=== PATIENT | male | born 2000 | race Caucasian/White ===

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

== ENCOUNTER 2022-06-13 08:50 | Emergency (ER) | payer BC, OTHER ==
[~2022-06-13] VITALS: Ht 185 cm; Wt 120.0 kg
[~2022-06-13 08:50] MED LIST changes: +AMOX-358 PO; +BENZ100C18 PO; +PARO25TA16 PO; +PRD10T PO
--- NOTE | 2022-06-13 09:35 | ED Back Pain ---
General Chief Complaint: Back Problems Stated Complaint: BACK PAIN Source of Information: Patient Exam Limitations: No Limitations History of Present Illness Date Seen by Provider: Jun 13, 2022 Time Seen by Provider: 09:15 Initial Comments Patient to the ER by private conveyance from home with chief complaint that yesterday afternoon he was doing some wrestling with friends and towards the evening started getting stiff and sore in his back. Nonradiating pain. No saddle anesthesia, loss of control of bowel or bladder, weakness or falls. No other trauma. No history of back problems. No fevers chills or dysuria. He did take some ibuprofen yesterday at 9:00 at night. Allergies and Home Medications Allergies Coded Allergies: Cephalexin Monohydrate (Verified Allergy, Mild, 04/18/12) Uncoded Allergies: possible allergy to keflex (Adverse Reaction, Mild, 04/18/12) Patient Home Medication List Home Medication List Reviewed: Yes Albuterol (Proventil 0.5% Rt) 2.5 Mg/0.5 Ml Nebu, (Reported) Entered as Reported by: HUSAM ARROYO on 11/07/10 0656 Amoxicillin/Potassium Clav (Augmentin 875-125 Tablet) 1 Each Tablet, 1 EACH PO BID Prescribed by: IVET PINEDA on 12/07/162250 Benzonatate (Tessalon Perles) 100 Mg Capsule, 1-2 TAB PO TID Prescribed by: IVET PINEDA on 12/07/162250 Paroxetine HCl (Paroxetine ER) 25 Mg Tab.er.24h, 25 MG PO HS, (Reported) Entered as Reported by: ROSALBA ORELLANA on 12/07/162144 Prednisone (Prednisone) 10 Mg Tab, 40 MG PO DAILY Prescribed by: IVET PINEDA on 12/07/162250 Review of Systems Constitutional: No chills, No diaphoresis EENTM: No ear discharge, No ear pain Respiratory: No cough, No short of breath Cardiovascular: No chest pain, No palpitations Gastrointestinal: No abdominal pain, No nausea, No vomiting All Other Systems Reviewed Negative Unless Noted: Yes Past Aveyndr-Sniozn-Llpmzi Hx Patient Social History Tobacco Use?: Yes Tobacco type used: Cigarettes Smoking Status: Current Everyday Smoker Use of E-Cig and/or Vaping dev: Yes E-Cig or Vaping type used: Nicotine Use of E-Cig and/or Vaping Alon: Current Everyday User Substance use?: Yes Substance type: Marijuana Alcohol Use?: Yes Alcohol type: Hard Liquor Alcohol Frequency: Once in a while Pt feels they are or have been: No Immunizations Up To Date Influenza Vaccine Up-to-Date: No; Not Current First/Initial COVID19 Vaccinat: 2020 Second COVID19 Vaccination Dima: 2020 Third COVID19 Vaccination Date: 2021 Seasonal Allergies Seasonal Allergies: Yes Past Medical History Surgery/Hospitalization HX: ASTHMA, ANXIETY T&A Tonsillectomy Asthma Reproductive Disorders: No Anxiety, Depression Physical Exam Vital Signs Capillary Refill : Height, Weight, BMI Height: 6'" Weight: 250lbs. oz. 113.447354ku; BMI Method:Stated General Appearance: No Apparent Distress, WD/WN HEENT: PERRL/EOMI, Pharynx Normal, Moist Mucous Membranes Neck: Full Range of Motion, Normal Inspection Cardiovascular: Regular Rate, Rhythm, No Edema, Normal Peripheral Pulses Respiratory: No Accessory Muscle Use, No Respiratory Distress Extremity: Normal Capillary Refill, Normal Inspection, Normal Range of Motion Neurologic/Psychiatric: Alert, Oriented x3, No Motor/Sensory Deficits Skin: Normal Color, Warm/Dry Progress/Results/Core Measures Results/Orders My Orders Orders - LUIS ERWIN Ua Culture If Indicated (06/13/22 09:02) Progress Progress Note : Time: 09:41 Progress Note No neurologic symptoms or red flag signs. Put him on NSAIDs and muscle relaxants with conservative counseling and exercising technique Departure Impression Primary Impression: Back strain Qualified Codes: S39.012A - Strain of muscle, fascia and tendon of lower back, initial encounter Disposition: 01 HOME, SELF-CARE Condition: Stable Departure-Patient Inst. Decision time for Depature: 09:43 Referrals: BAN MONTEMAYOR DO (PCP/Family) Primary Care Physician Patient Instructions: Back Exercises, Back Muscle Strain (DC) Add. Discharge Instructions: Review the handouts for recommendations on back strengthening exercises. Obtain and wear a back brace on the days that helps. Naproxen 500 mg twice a day on a scheduled basis for 1 to 2 weeks until the pain improves. Cyclobenzaprine 1 tablet every 8 hours as necessary for muscle spasms in your back. You may cut the tablet in half if it leaves you too drowsy. Do not mix with alcohol or operate heavy machinery or long drives while under the influence of cyclobenzaprine. Judicious applications of heat as well as topical creams such as icy hot or Biofreeze may be helpful for your back pain. You may follow with a chiropractor, get massages and limit your heavy lifting. If you are still having significant symptoms 2 to 4 weeks out then you can follow-up with your primary care doctor and/or physical therapy. [facility] physical therapy may be reached at [phone]. Promptly return to the nearest ER if you experience loss of control of bowel or bladder, weakness leaving you unable to stand or numbness in your saddle region. Otherwise your symptoms should improve over the next week or 2. All discharge instructions reviewed with patient and/or family. Voiced understanding. Scripts Naproxen (Naprosyn) 500 Mg Tablet 500 MG PO BID for 14 Days, #30 TAB 0 Refills Prov: LUIS ERWIN 06/13/22 Cyclobenzaprine HCl (Cyclobenzaprine HCl) 10 Mg Tablet 10 MG PO Q8H PRN for SPASMS, #20 TAB 0 Refills Prov: LUIS ERWIN 06/13/22 LUIS ERWIN Jun 13, 2022 09:35
[2022-06-13] MEDS ORDERED: CYCL10TA25 PO (09:47)
[2022-06-13] MEDS ORDERED: NAPR-1071 PO (09:47)
[2022-06-13] MEDS ORDERED: ORPHENADRINE 60 MG/2 ML (NORFLEX) AMP (ED ONLY) IM ONE (10:00)
[2022-06-13] MEDS ORDERED: KETOROLAC 60 MG/2 ML VIAL IM ONE (10:00)
[2022-06-13] MEDS ORDERED: KETOROLAC 60 MG/2 ML VIAL ONE (10:02)
[2022-06-13] MEDS ORDERED: ORPHENADRINE 60 MG/2 ML (NORFLEX) AMP (ED ONLY) ONE (10:03)
[2022-06-13 10:10] VITALS: BP 140/97
== END 2022-06-13 10:10 | disposition home or self-care (01) ==
LOC: EDUNIT# 08:50 → ER 08:52
DX: S39.012A Strain of muscle, fascia and tendon of lower back, initial encounter (principal); F17.210 Nicotine dependence, cigarettes, uncomplicated; F17.290 Nicotine dependence, other tobacco product, uncomplicated; X58.XXXA Exposure to other specified factors, initial encounter; Y93.72 Activity, wrestling
CPT/HCPCS: 99284

== ENCOUNTER 2023-05-02 00:57 | Emergency (ER) | payer BC ==
[~2023-05-02] VITALS: Ht 183 cm; Wt 136.0 kg
[~2023-05-02 00:57] MED LIST changes: +CYCL10TA25 PO; +NAPR-1071 PO
[2023-05-02] MEDS ORDERED: NS IV 1000 ML 1,000 ML IV STA (01:20)
--- NOTE | 2023-05-02 01:20 | ED Abdominal Pain ---
General Chief Complaint: Abdominal/GI Problems Stated Complaint: RT SIDE PX,VOMITING Nursing Triage Note: rt sided pain, started 1-2 hours ago. states vomitting. Source of Information: Patient Exam Limitations: No Limitations History of Present Illness Date Seen by Provider: May 02, 2023 Time Seen by Provider: 01:10 Initial Comments Patient is a 23-year-old male who presents to the emergency room with a chief complaint of right flank pain, right lower quadrant abdominal pain onset a couple of hours ago. He states he developed nausea and vomiting, multiple times. He has never had a pain like this before. He states laying on his left side tends to help the pain a little bit, movement and bumps in the road and the car on the way here made the pain worse. No recent fevers or chills. He was able to eat some strawberries shortcake about 3 hours ago. He states his last bowel movement was yesterday. He has no prior abdominal surgeries. He has not taken anything for the pain. Denies testicular pain or swelling. No dysuria, urgency or frequency. Currently rates his pain at a "7 or 8". Has a family history of a grandfather who has had kidney stones. Timing/Duration: 1-3 Hours Severity/Quality: Severe ("7-8") Location: RLQ, Flank (right) Modifying Factors: Improves With Lying down; Worsens With Movement Associated Symptoms: Nausea/Vomiting Allergies and Home Medications Allergies Coded Allergies: Cephalexin Monohydrate (Verified Allergy, Mild, 04/18/12) Uncoded Allergies: possible allergy to keflex (Adverse Reaction, Mild, 04/18/12) Patient Home Medication List Home Medication List Reviewed: Yes Albuterol (Proventil 0.5% Rt) 2.5 Mg/0.5 Ml [facility], (Reported) Entered as Reported by: HUSAM ARROYO on 11/07/10 0656 Amoxicillin/Potassium Clav (Augmentin 875-125 Tablet) 1 Each Tablet, 1 EACH PO BID Prescribed by: IVET PINEDA on 12/07/162250 Benzonatate (Tessalon Perles) 100 Mg Capsule, 1-2 TAB PO TID Prescribed by: IVET PINEDA on 12/07/162250 Cyclobenzaprine HCl (Cyclobenzaprine HCl) 10 Mg Tablet, 10 MG PO Q8H PRN for SPASMS Prescribed by: LUIS ERWIN on 06/13/22 0947 Hydrocodone/Acetaminophen (Hydrocodone-Acetamin 5-325 mg) 5 Mg-325 Mg Tablet, 1 TAB PO Q6H PRN for PAIN-BREAKTHROUGH Prescribed by: CULLEN PEREZ on 05/02/23 030 Naproxen (Naprosyn) 500 Mg Tablet, 500 MG PO BID Prescribed by: LUIS ERWIN on 06/13/22 0947 Ondansetron (Ondansetron Odt) 4 Mg Tab.rapdis, 4 MG SL Q8H PRN for NAUSEA/VOMITING Prescribed by: CULLEN PEREZ on 05/02/23 030 Paroxetine HCl (Paroxetine ER) 25 Mg Tab.er.24h, 25 MG PO HS, (Reported) Entered as Reported by: ROSALBA ORELLANA on 12/07/162144 Prednisone (Prednisone) 10 Mg Tab, 40 MG PO DAILY Prescribed by: IVET PINEDA on 12/07/16 225 Tamsulosin HCl (Flomax) 0.4 Mg Cap, 0.4 MG PO HS Prescribed by: CULLEN PEREZ on 05/02/23 030 Review of Systems Review of Systems Constitutional: see HPI Respiratory: Shortness of Air (due to the pain) Cardiovascular: No Symptoms Reported Gastrointestinal: Abdominal Pain, Nausea, Vomiting Genitourinary: No Symptoms Reported Musculoskeletal: no symptoms reported Skin: no symptoms reported All Other Systems Reviewed Negative Unless Noted: Yes Past Iauxerk-Wjsnzq-Dtsbpf Hx Patient Social History Tobacco Use?: Yes Tobacco type used: Cigarettes Substance use?: Yes Substance type: Marijuana Substance frequency: Daily Immunizations Up To Date First/Initial COVID19 Vaccinat: 2020 Second COVID19 Vaccination Dima: 2020 Third COVID19 Vaccination Date: 2021 Seasonal Allergies Seasonal Allergies: Yes Past Medical History Surgery/Hospitalization HX: ASTHMA, ANXIETY T&A Tonsillectomy Asthma Reproductive Disorders: No Anxiety, Depression Physical Exam Vital Signs Vital Signs - First Documented 05/02/23 05/02/23 01:08 03:50 Temp 36.9 Pulse 86 Resp 18 B/P (MAP) 137/96 Pulse Ox 98 O2 Delivery Room Air Capillary Refill : Less Than 3 Seconds Height/Weight/BMI Height: 6'" Weight: 250lbs. oz. 113.579719pt; 40.00 BMI Method:Stated General Appearance: WD/WN, mild distress HEENT: PERRL/EOMI Respiratory: lungs clear, normal breath sounds, no respiratory distress, no accessory muscle use Cardiovascular: regular rate, rhythm Gastrointestinal: normal bowel sounds, non tender, soft Back: normal inspection, no CVA tenderness Neurologic/Psychiatric: alert, normal mood/affect, oriented x 3 Skin: normal color, warm/dry Progress/Results/Core Measures Results/Orders Lab Results Laboratory Tests Test 05/02/23 01:12 05/02/23 02:30 Range/Units White Blood Count 14.6 H 4.3-11.0 10^3/uL Red Blood Count 5.47 4.30-5.52 10^6/uL Hemoglobin 15.9 13.3-17.7 g/dL Hematocrit 45 40-54 % Mean Corpuscular Volume 83 80-99 fL Mean Corpuscular Hemoglobin 29 25-34 pg Mean Corpuscular Hemoglobin Concent 35 32-36 g/dL Red Cell Distribution Width 12.2 10.0-14.5 % Platelet Count 324 130-400 10^3/uL Mean Platelet Volume 10.8 9.0-12.2 fL Immature Granulocyte % (Auto) 0 % Neutrophils (%) (Auto) 72 42-75 % Lymphocytes (%) (Auto) 20 12-44 % Monocytes (%) (Auto) 6 0-12 % Eosinophils (%) (Auto) 2 0-10 % Basophils (%) (Auto) 1 0-10 % Neutrophils # (Auto) 10.5 H 1.8-7.8 10^3/uL Lymphocytes # (Auto) 2.9 1.0-4.0 10^3/uL Monocytes # (Auto) 0.8 0.0-1.0 10^3/uL Eosinophils # (Auto) 0.2 0.0-0.3 10^3/uL Basophils # (Auto) 0.1 0.0-0.1 10^3/uL Immature Granulocyte # (Auto) 0.0 0.0-0.1 10^3/uL Sodium Level 142 135-145 MMOL/L Potassium Level 3.7 3.6-5.0 MMOL/L Chloride Level 109 H 98-107 MMOL/L Carbon Dioxide Level 20 L 21-32 MMOL/L Anion Gap 13 5-14 MMOL/L Blood Urea Nitrogen 12 7-18 MG/DL Creatinine 1.02 0.60-1.30 MG/DL Estimat Glomerular Filtration Rate 107 BUN/Creatinine Ratio 12 Glucose Level 116 H 70-105 MG/DL Calcium Level 10.0 8.5-10.1 MG/DL Urine Color BROWN H Urine Clarity TURBID Urine pH 6.0 5-9 Urine Specific Hilliard >=1.030 1.016-1.022 Urine Protein 2+ H NEGATIVE Urine Glucose (UA) NEGATIVE NEGATIVE Urine Ketones NEGATIVE NEGATIVE Urine Nitrite NEGATIVE NEGATIVE Urine Bilirubin 2+ H NEGATIVE Urine Urobilinogen 1.0 < = 1.0 MG/DL Urine Leukocyte Esterase NEGATIVE NEGATIVE Urine RBC (Auto) 3+ H NEGATIVE Urine RBC >100 H /HPF Urine WBC RARE /HPF Urine Crystals NONE /LPF Urine Amorphous Sediment FEW KERRI PHOSPHATE H /LPF Urine Bacteria NEGATIVE /HPF Urine Casts PRESENT /LPF Urine Hyaline Casts RARE /LPF Urine Mucus SMALL H /LPF Urine Culture Indicated NO My Orders Orders - CULLEN PEREZ MD Ed Iv/Invasive Line Start (05/02/23 01:20) Cbc With Automated Diff (05/02/23 01:20) Basic Metabolic Panel (05/02/23 01:20) Ua Culture If Indicated (05/02/23 01:20) Ct Abd/Pelvis Wo(Kidney Stone) (05/02/23 01:20) Abdomen/Kub 1view (05/02/23 01:20) Ns Iv 1000 Ml (Sodium Chloride 0.9%) (05/02/23 01:20) Ketorolac Injection (Toradol Injection) (05/02/23 01:30) Ondansetron Injection (Zofran Injectio (05/02/23 01:30) Ketorolac Injection (Toradol Injection) (05/02/23 01:29) Ondansetron Injection (Zofran Injectio (05/02/23 01:29) Ns Iv 1000 Ml (Sodium Chloride 0.9%) (05/02/23 01:29) Tamsulosin Capsule (Flomax Capsule) (05/02/23 18:00) Hydrocodone/Apap 5/325 Tablet (Lortab 5 (05/02/23 03:15) Rx-Hydrocodone/Apap 5-325 Mg (Rx-Vicodin (05/02/23 03:15) Tamsulosin Capsule (Flomax Capsule) (05/02/23 03:36) Medications Given in ED Current Medications Medications Dose Ordered Sig/Opal Route Start Time Stop Time Status Last Admin Dose Admin Acetaminophen/ Hydrocodone Bitart 1 ea ONCE ONCE PO 05/02/23 03:15 05/02/23 03:16 DC 05/02/23 03:48 1 EA Acetaminophen/ Hydrocodone Bitart 1 ea Q6H PRN PO 05/02/23 03:15 05/02/23 03:57 DC 05/02/23 03:50 1 EA Ketorolac Tromethamine 15 mg ONCE ONCE IVP 05/02/23 01:30 05/02/23 01:31 DC 05/02/23 01:32 15 MG Ondansetron HCl 4 mg ONCE ONCE IVP 05/02/23 01:30 05/02/23 01:31 DC 05/02/23 01:34 4 MG Vital Signs/I&O 05/02/23 05/02/23 01:08 03:50 Temp 36.9 Pulse 86 61 Resp 18 20 B/P (MAP) 137/96 Pulse Ox 98 98 O2 Delivery Room Air Room Air Progress Progress Note #1: Time: 02:56 Progress Note pain improved - rated about a "3 or 4" currently Progress Note #2: Time: 03:30 Progress Note Patient seen and evaluated by me. Evaluation today includes physical exam, CBC, basic metabolic panel, urinalysis, KUB and CT scan renal stone protocol. Pertinent physical exam findings well-developed well-nourished obese male in no acute distress. Abdomen is soft with minimal tenderness in the right flank. Bowel sounds are present. No involuntary guarding or rebound. No CVA tenderness. Vital signs are stable. Differential diagnosis based on history and physical exam, renal colic/right- sided kidney stone, acute appendicitis. Labs, KUB and CT scan independently reviewed and interpreted by me. His CBC shows a total white blood cell count of 14.6 otherwise normal. Chemistry shows a slightly decreased CO2 at 20. Chloride of 109. Urinalysis shows greater than 100 red blood cells without nitrites, white blood cells or leukocyte esterase. KUB shows a small area of calcification at approximately the level of L1 on the right consistent with possible kidney stone. CT scan reviewed by me shows a small 2 to 3 mm stone proximal right ureter. Patient was treated in the emergency department with 1 L of normal saline, 15 mg of Toradol IV, 4 of Zofran IV. He achieved significant improvement in his symptoms down to a "3 or 4". He was then given Flomax and hydrocodone for home. Patient was instructed to strain his urine until he passed his stone. He has no findings concerning for urinary tract infection associated with his kidney stone. Shared decision making with the patient and his mother who is at the bedside. Patient is comfortable with discharge to home. Pain is well controlled. Return precautions are provided in both verbal and written format. All questions were sought and answered. Patient is improved at discharge Diagnostic Imaging Diagonstic Imaging: Xray Comments independent interpretation by me - Right sided renal stone about the level L1 Diagonstic Imaging: CT Comments 025 CT renal stone protocol independent interpretation by me 3mm stone prox right ureter Departure Impression Primary Impression: Kidney stone on right side Disposition: 01 HOME, SELF-CARE Condition: Improved Departure-Patient Inst. Decision time for Depature: 03:43 Referrals: BAN MONTEMAYOR DO (PCP/Family) Primary Care Physician Patient Instructions: Kidney Stone, Adult ED Add. Discharge Instructions: Drink plenty of fluids to stay well hydrated. Use the Ondansetron 4mg every 8 hours for nausea. Hydrocodone 5mg tablets every 6 hours as needed for pain. This medication can make you constipated. You should take a daily stool softener if you are having to take it often. Ibuprofen 3 tablets (600mg) every 6 hours with food also, as needed for pain. Flomax 0.4mg daily at bedtime to increase urinary flow (until you pass the stone). Strain your urine until you pass your kidney stone. If you develop a fever, worsening pain, vomiting where you cant hold down medication, please return to the Emergency Department for re-evaluation. Please follow up with your primary care doctor. Scripts Ondansetron (Ondansetron Odt) 4 Mg Tab.rapdis 4 MG SL Q8H PRN for NAUSEA/VOMITING, #12 TAB Prov: CULLEN PEREZ MD 05/02/23 Hydrocodone/Acetaminophen (Hydrocodone-Acetamin 5-325 mg) 5 Mg-325 Mg Tablet 1 TAB PO Q6H PRN for PAIN-BREAKTHROUGH, #12 TAB Prov: CULLEN PEREZ MD 05/02/23 Tamsulosin HCl (Flomax) 0.4 Mg Cap 0.4 MG PO HS for 14 Days, #14 CAP Prov: CULLEN PEREZ MD 05/02/23 Copy Copies To 1: BAN MONTEMAYOR KATHRYN M MD May 02, 2023 01:20
[2023-05-02] MEDS ORDERED: NS IV 1000 ML 1,000 ML ONE (01:29)
[2023-05-02] MEDS ORDERED: ONDANSETRON 4 MG/2 ML (SDV) Z0FRAN ONE (01:29)
[2023-05-02] MEDS ORDERED: KETOROLAC 15 MG/ML VIAL ONE (01:29)
[2023-05-02] MEDS ORDERED: KETOROLAC 15 MG/ML VIAL IVP ONE (01:30)
[2023-05-02] MEDS ORDERED: ONDANSETRON 4 MG/2 ML (SDV) Z0FRAN IVP ONE (01:30)
[2023-05-02 01:43] LABS: BASOPHILS # (AUTO) 0.1 10^3/uL (0.0-0.1); BASOPHILS % (AUTO) 1 % (0-10); EOSINOPHILS # (AUTO) 0.2 10^3/uL (0.0-0.3); EOSINOPHILS % (AUTO) 2 % (0-10); HEMATOCRIT 45 % (40-54); HEMOGLOBIN 15.9 g/dL (13.3-17.7); LYMPHOCYTES # (AUTO) 2.9 10^3/uL (1.0-4.0); LYMPHOCYTES % (AUTO) 20 % (12-44); MEAN CORPUSCULAR HEMOGLOBIN 29 pg (25-34); MEAN CORPUSCULAR HGB CONC 35 g/dL (32-36); MEAN CORPUSCULAR VOLUME 83 fL (80-99); MEAN PLATELET VOLUME 10.8 fL (9.0-12.2); MONOCYTES # (AUTO) 0.8 10^3/uL (0.0-1.0); MONOCYTES % (AUTO) 6 % (0-12); NEUTROPHILS # (AUTO) 10.5 10^3/uL (1.8-7.8); NEUTROPHILS % (AUTO) 72 % (42-75); PLATELET COUNT 324 10^3/uL (130-400); WHITE BLOOD COUNT 14.6 10^3/uL (4.3-11.0)
[2023-05-02 01:48] LABS: POTASSIUM 3.7 MMOL/L (3.6-5.0)
[2023-05-02 01:53] LABS: CREATININE SERUM 1.02 MG/DL (0.60-1.30)
[2023-05-02 02:51] LABS: CLARITY,URINE TURBID; COLOR,URINE BROWN; GLUCOSE, URINE (UA) NEGATIVE (NEGATIVE); KETONES,URINE NEGATIVE (NEGATIVE); LEUKOCYTE ESTERASE ,URINE NEGATIVE (NEGATIVE); NITRITE,URINE NEGATIVE (NEGATIVE); PROTEIN,URINE 2+ (NEGATIVE)
[2023-05-02] MEDS ORDERED: TMSL.4C PO (03:02)
[2023-05-02] MEDS ORDERED: ACHD5005 PO (03:02)
[2023-05-02] MEDS ORDERED: ONDA4TAB11 SL (03:02)
[2023-05-02 03:12] LABS: BACTERIA,URINE NEGATIVE /HPF; RBC,URINE >100 /HPF; WBC,URINE RARE /HPF
[2023-05-02] MEDS ORDERED: HYDROcodone/APAP 5 MG/325 MG (LORTAB) TAB PO ONE (03:15)
[2023-05-02 03:16] LABS: HYALINE CASTS, URINE RARE /LPF
[2023-05-02 03:17] LABS: AMORPHOUS SEDIMENT,UR FEW AMOR PHOSPHATE /LPF; BILIRUBIN,URINE 2+ (NEGATIVE)
[2023-05-02] MEDS ORDERED: TAMSULOSIN 0.4 MG (FLOMAX) CAP PO ONE (03:36)
[2023-05-02 03:50] VITALS: BP 137/96
--- NOTE | 2023-05-02 06:44 | Diagnostic Imaging Report ---
Vomiting with right flank pain. Correlated with a CT performed earlier. The minute calculi appreciable at CT are not apparent at radiograph owing to modality limitations. No bowel obstruction. IMPRESSION: No abnormality appreciable. Known stones are imperceptible at this exam. Dictated by: Dictated on workstation # [id number]
--- NOTE | 2023-05-02 06:46 | Diagnostic Imaging Report ---
PROCEDURE: CT urinary tract, rule out kidney stone. TECHNIQUE: Multiple contiguous axial images were obtained through the abdomen and pelvis without the use of intravenous contrast. Auto Exposure Controls were utilized during the CT exam to meet ALARA standards for radiation dose reduction. INDICATION: Right flank pain with vomiting. Noncontrasted abdominal pelvic CT performed with multiplanar reconstructions FINDINGS: There is a punctate 2 mm calculus at the level of the right ureteropelvic junction resulting in mild proximal hydronephrosis. There are additional 1 to 2 mm punctate stones within right upper pole calyces. The contralateral left kidney is unobstructed and contains at least 2 faint 1 mm calculi. The appendix well-visualized and normal. There is no diverticulitis. There is no ileus or bowel obstruction. The urinary bladder unremarkable. The remaining unopacified abdominal pelvic solid viscus unremarkable. IMPRESSION: Mild bilateral nephrolithiasis, mild right hydronephrosis secondary to a 2 mm stone at the right UPJ. Agree with preliminary Dictated by: Dictated on workstation # [id number]
[2023-05-02] MEDS ORDERED: TAMSULOSIN 0.4 MG (FLOMAX) CAP PO SCH (18:00)
== END 2023-05-02 03:57 | disposition home or self-care (01) ==
LOC: EDUNIT# 00:57 → ER 01:01
DX: N13.2 Hydronephrosis with renal and ureteral calculous obstruction (principal); F17.210 Nicotine dependence, cigarettes, uncomplicated
CPT/HCPCS: 36415; 74018; 74176; 80048; 81000; 85025

== ENCOUNTER 2023-05-07 13:24 | Emergency (ER) | payer BC ==
[~2023-05-07] VITALS: Ht 182.8 cm; Wt 127.2 kg
[~2023-05-07 13:24] MED LIST changes: +ACHD5005 PO; +ONDA4TAB11 SL; +TMSL.4C PO
[2023-05-07 13:27] VITALS: BP 138/89
[2023-05-07] MEDS ORDERED: ONDANSETRON 4 MG (ZOFRAN) ORAL DISSOLVE TAB PO ONE (14:00)
--- NOTE | 2023-05-07 14:04 | ED Cough/URI ---
General Chief Complaint: Respiratory Problems Stated Complaint: SOA, VOMITING Nursing Triage Note: Patient c/o cough and shortness of breath x 3 days ago. Patient states he seen his PCP for this 2 days ago and was started on an antibiotic. Patient c/o N/V that started today, but denies any diarrhea. Patient states he has vomited x 2 today. Patient c/o epigastric pain with rating his pain 2/10. Patient states he started to do a breathing Tx. before coming to the ER, but states he only end up doing half the Tx. Patient able to talk in full sentences without having to stop and catch his breath. No active vomiting upon coming into ER. Source: patient Exam Limitations: no limitations (YANNA GUTIERREZ APRN) History of Present Illness Date Seen by Provider: May 07, 2023 Time Seen by Provider: 13:53 Initial Comments This is a 23-year-old male with a history of asthma who presented to the ER for complaints of cough and shortness of breath for the past 3 days. States that he was recently evaluated in the ER and diagnosed with a right kidney stone, when he followed up with his primary care provider he was given Augmentin for potential infection. States that he attempted to do a breathing treatment prior to arrival but he felt more short of breath so he decided to come to the ER to be further evaluated. He does have ondansetron at home for nausea but has not taken anything this morning. No fever, chills, chest pain, abdominal pain, nausea, vomiting, diarrhea. (YANNA GUTIERREZ TREE TRIMMER) Allergies and Home Medications Allergies Coded Allergies: Cephalexin Monohydrate (Verified Allergy, Mild, 04/18/12) Uncoded Allergies: possible allergy to keflex (Adverse Reaction, Mild, 04/18/12) Patient Home Medication List Home Medication List Reviewed: Yes (YANNA GUTIERREZ APRN) Albuterol (Proventil 0.5% Rt) 2.5 Mg/0.5 Ml Nebu, (Reported) Entered as Reported by: HUSAM ARROYO on 11/07/10 0656 Amoxicillin/Potassium Clav (Augmentin 875-125 Tablet) 1 Each Tablet, 1 EACH PO BID Prescribed by: IVET PINEDA on 12/07/16 2251 Benzonatate (Tessalon Perles) 100 Mg Capsule, 1-2 TAB PO TID Prescribed by: IVET PINEDA on 12/07/162250 Cyclobenzaprine HCl (Cyclobenzaprine HCl) 10 Mg Tablet, 10 MG PO Q8H PRN for SPASMS Prescribed by: LUIS ERWIN on 06/13/22 0947 Hydrocodone/Acetaminophen (Hydrocodone-Acetamin 5-325 mg) 5 Mg-325 Mg Tablet, 1 TAB PO Q6H PRN for PAIN-BREAKTHROUGH Prescribed by: CULLEN PEREZ on 05/02/23 030 Naproxen (Naprosyn) 500 Mg Tablet, 500 MG PO BID Prescribed by: LUIS ERWIN on 06/13/22 0947 Ondansetron (Ondansetron Odt) 4 Mg Tab.rapdis, 4 MG SL Q8H PRN for NAUSEA/VOMITING Prescribed by: CULLEN PEREZ on 05/02/23 030 Paroxetine HCl (Paroxetine ER) 25 Mg Tab.er.24h, 25 MG PO HS, (Reported) Entered as Reported by: ROSALBA ORELLANA on 12/07/162144 Prednisone (Prednisone) 10 Mg Tab, 40 MG PO DAILY Prescribed by: IVET PINEDA on 12/07/162250 Tamsulosin HCl (Flomax) 0.4 Mg Cap, 0.4 MG PO HS Prescribed by: CULLEN PEREZ on 05/02/23301 Review of Systems Review of Systems Constitutional: see HPI (YANNA GUTIERREZ TREE TRIMMER) Past Zrbygbc-Nbtorx-Qfeijj Hx Patient Social History Tobacco Use?: No Tobacco type used: Cigarettes Smoking Status: Former Smoker Use of E-Cig and/or Vaping dev: Yes E-Cig or Vaping type used: Nicotine Use of E-Cig and/or Vaping Alon: Current Everyday User Substance use?: Yes Substance type: Marijuana Substance frequency: Once in a while Alcohol Use?: No (YANNA GUTIERREZ TREE TRIMMER) Immunizations Up To Date Influenza Vaccine Up-to-Date: No; Not Current First/Initial COVID19 Vaccinat: 2020 Second COVID19 Vaccination Dima: 2020 Third COVID19 Vaccination Date: 2021 (YANNA GUTIERREZ TREE TRIMMER) Seasonal Allergies Seasonal Allergies: Yes (YANNA GUTIERREZ APRN) Past Medical History Surgery/Hospitalization HX: Asthma Tonsillectomy Asthma Reproductive Disorders: No Anxiety, Depression (YANNA GUTIERREZ APRN) Physical Exam Vital Signs - First Documented 05/07/23 13:27 Temp 37.1 Pulse 86 Resp 14 B/P (MAP) 138/89 (105) Pulse Ox 99 O2 Delivery Room Air (SUSANA RAZO MD) Capillary Refill : (YANNA GUTIERREZ APRN) Height: 6'" Weight: 250lbs. oz. 113.930164sb; 38.00 BMI Method:Stated General Appearance: WD/WN, no apparent distress Eyes: Bilateral Eye Normal Inspection, Bilateral Eye PERRL, Bilateral Eye EOMI HEENT: PERRL/EOMI, normal ENT inspection, pharynx normal Neck: full range of motion, supple, normal inspection Respiratory: lungs clear, normal breath sounds, no respiratory distress, no accessory muscle use Cardiovascular: regular rate, rhythm, no murmur Extremities: normal range of motion, normal inspection Neurologic/Psychiatric: no motor/sensory deficits, alert, normal mood/affect, oriented x 3 Skin: normal color, warm/dry (YANNA GUTIERREZ APRN) Progress/Results/Core Measures Suspected Sepsis SIRS Temperature: Pulse: 86 Respiratory Rate: 14 Blood Pressure 138 /89 Mean: 105 (YANNA GUTIERREZ APRN) Results/Orders Medications Given in ED Current Medications Medications Dose Ordered Sig/Opal Route Start Time Stop Time Status Last Admin Dose Admin Ondansetron HCl 4 mg ONCE ONCE PO 05/07/23 14:00 05/07/23 14:01 DC 05/07/23 14:23 4 MG (SUSANA RAZO MD) Vital Signs/I&O 05/07/23 13:27 Temp 37.1 Pulse 86 Resp 14 B/P (MAP) 138/89 (105) Pulse Ox 99 O2 Delivery Room Air (SUSANA RAZO MD) Vital Signs/I&O Capillary Refill : (YANNA GUTIERREZ APRN) Blood Pressure Mean: 105 Progress Note : Progress Note Patient examined in no acute distress. His vital signs are stable, no accessory muscle use no increased effort. His exam is unremarkable. We will go ahead and obtain chest x-ray and give Zofran now. Had questions inquiring about his kidney stone, reviewed his CAT scan with him and given copy in the emergency department. All questions and concerns voiced were addressed. Notes his breathing is feeling much better here in the ER. He has no other constitutional symptoms we will defer any labs at this time and see what his chest x-ray shows. Chest x-ray reviewed, no pleural effusion, no pneumothorax, no opacities seen, pending radiology review. Final review of x-ray per radiology negative for acute features. Discharge plan of care reviewed with patient and he is agreeable with plan. States that he is feeling much improved, vital signs stable at time of discharge. (YANNA GUTIERREZ TREE TRIMMER) Diagnostic Imaging Diagonstic Imaging: Xray Plain Films/CT/US/NM/MRI: chest Comments [facility], [place] NAME: BREEZY SPENCER [facility] REC#: [id number] PT STATUS: DEP ER : 2000 PHYSICIAN: YANNA GUTIERREZ APRN ADMIT DATE: 05/07/23/ER Signed Date of Exam:05/07/23 CHEST PA/LAT (2 VIEW) EXAMINATION: CHEST (PA AND LATERAL) CLINICAL INDICATION: 23-year-old male, cough and shortness of breath. COMPARISON: None. FINDINGS: Heart size and mediastinal contours are unremarkable. There is no identified pneumothorax. There is no pleural effusion. There is no identified focal airspace consolidation. IMPRESSION: 1. No identified acute cardiopulmonary abnormality. Dictated by: Dictated on workstation # [id number] Dict: 05/07/23 1426 Trans: 05/07/23 1440 [facility] [id number] Interpreted by: BENJAMIN BOWDEN MD Electronically signed by: BENJAMIN BOWDEN MD 05/07/23 1440 (YANNA GUTIERREZ TREE TRIMMER) Departure Impression Primary Impression: Cough variant not due to asthma Additional Impression: Right kidney stone Disposition: 01 HOME, SELF-CARE Condition: Improved Departure-Patient Inst. Decision time for Depature: 14:22 (YANNA GUTIERREZ TREE TRIMMER) Referrals: BAN MONTEMAYOR DO (PCP/Family) Primary Care Physician Patient Instructions: Cough, runny nose, and the common cold, Kidney Stone, Adult ED Add. Discharge Instructions: Plan: 1. Use Zofran as needed for nausea and vomiting. 2. You can take ifme-qfa-nomogzh cough suppressant, use your albuterol as needed for cough. 3. Follow-up with your primary care provider if you have persistent symptoms in regard to your kidney stone, if you have uncontrolled pain you can always return to the ER. 4. Return for any new, concerning, worsening symptoms. All discharge instructions reviewed with patient and/or family. Voiced understanding. ATTENDING PHYSICIAN NOTE: I was physically present as attending physician in the emergency department during the care of this patient, but I was not directly involved in the decision making or delivery of care for this patient. (SUSANA RAZO MD) YANNA GUTIERREZ APRN May 07, 2023 14:04 SUSANA RAZO MD May 07, 2023 18:42
--- NOTE | 2023-05-07 14:34 | Diagnostic Imaging Report ---
EXAMINATION: CHEST (PA AND LATERAL) CLINICAL INDICATION: 23-year-old male, cough and shortness of breath. COMPARISON: None. FINDINGS: Heart size and mediastinal contours are unremarkable. There is no identified pneumothorax. There is no pleural effusion. There is no identified focal airspace consolidation. IMPRESSION: 1. No identified acute cardiopulmonary abnormality. Dictated by: Dictated on workstation # [id number]
== END 2023-05-07 14:26 | disposition home or self-care (01) ==
LOC: EDUNIT# 13:24 → ER 13:26
DX: R05.9 Cough, unspecified (principal); N20.0 Calculus of kidney; F17.290 Nicotine dependence, other tobacco product, uncomplicated; Z87.09 Personal history of other diseases of the respiratory system
CPT/HCPCS: 71046

== ENCOUNTER → 2023-10-12 | Outpatient (CLI) | payer BC ==
[2023-10-12 14:05] LABS: BASOPHILS # (AUTO) 0.1 10^3/uL (0.0-0.1); BASOPHILS % (AUTO) 1 % (0-10); EOSINOPHILS # (AUTO) 0.2 10^3/uL (0.0-0.3); EOSINOPHILS % (AUTO) 2 % (0-10); HEMATOCRIT 46 % (40-54); HEMOGLOBIN 15.5 g/dL (13.3-17.7); LYMPHOCYTES # (AUTO) 2.2 10^3/uL (1.0-4.0); LYMPHOCYTES % (AUTO) 27 % (12-44); MEAN CORPUSCULAR HEMOGLOBIN 29 pg (25-34); MEAN CORPUSCULAR HGB CONC 34 g/dL (32-36); MEAN CORPUSCULAR VOLUME 85 fL (80-99); MEAN PLATELET VOLUME 10.1 fL (9.0-12.2); MONOCYTES # (AUTO) 0.5 10^3/uL (0.0-1.0); MONOCYTES % (AUTO) 6 % (0-12); NEUTROPHILS # (AUTO) 5.4 10^3/uL (1.8-7.8); NEUTROPHILS % (AUTO) 65 % (42-75); PLATELET COUNT 253 10^3/uL (130-400); WHITE BLOOD COUNT 8.4 10^3/uL (4.3-11.0)
[2023-10-12 14:18] LABS: ALBUMIN 4.5 GM/DL (3.2-4.5)
[2023-10-12 14:19] LABS: CALCIUM 9.5 MG/DL (8.5-10.1)
[2023-10-12 14:21] LABS: TOTAL PROTEIN 7.4 GM/DL (6.4-8.2)
[2023-10-12 14:22] LABS: BILIRUBIN,TOTAL 0.5 MG/DL (0.1-1.0)
[2023-10-12 14:24] LABS: CREATININE SERUM 0.85 MG/DL (0.60-1.30)
== END ==
LOC: CARD 13:44
PROVIDERS: ATTEND Nurse Practitioner Family
DX: R55 Syncope and collapse (principal); R00.2 Palpitations
CPT/HCPCS: 36415; 80053; 84436; 84443; 85025

== ENCOUNTER → 2023-10-17 | Outpatient (CLI) | payer BC | LOC: CARD 14:48 | PROVIDERS: ATTEND Nurse Practitioner Family | DX: R55 Syncope and collapse (principal); R00.2 Palpitations ==